=== PATIENT | female | born 1970 | race Caucasian/White ===

== ENCOUNTER 2023-03-06 21:02 | Emergency (ER) | payer BC, OTHER, SELFPAY ==
--- NOTE | ~2023-03-06 | XR_ITS ---
EXAM: XR knee RT 3V DATE: 03/06/2023 21:58 HISTORY: MEDIAL RIGHT KNEE PAIN AFTER TWISTING INJURY TODAY. . COMPARISON: None available. FINDINGS: Normal mineralization. No fracture or dislocation. No lytic or blastic lesion. Tricompartm ental osteoarthritic arthritis, severe in the medial compartment. Moderate joint effusion. No erosion or periosteal change. Soft tissues within normal limits. IMPRESSION: No acute osseous finding in the right knee. Reviewed, dictated and finalized at location K.
[2023-03-06 21:29] VITALS: BP 183/80; PULSE 98; RESP 20; TEMP 37; O2SAT 96
--- NOTE | 2023-03-06 21:59 | ED.LOWEXIN ---
HPI - Extremity Injury (Lower) General Chief Complaint: Extremity Injury, Lower Stated Complaint: R Ankle Injury Time Seen by Provider: 03/06/23 21:12 Source: patient Mode of arrival: ambulatory Limitations: no limitations History of Present Illness HPI Narrative: this is a 52-year-old female with a history of chronic pain presents after she twisted her right knee earlier this evening causing pain that she rates at 10/10 has tried [id number] medications with minimal relief there is some swelling in the anterior surface of her right knee with tenderness with palpation and movement. complaint: knee injury Onset (ago): hour(s) Injury: Right: knee ( tender with swelling) Type of Injury: inversion Place: home Severity: moderate Severity scale (1-10): 10 Relieving factors: nothing Exacerbating factors: weight bearing, movement and palpation Context: walking Related Data Home Medications Medication Instructions Recorded Confirmed cyclobenzaprine 10 mg tablet 10 mg PO TID PRN Muscle Spasm 03/06/23 03/06/23 ibuprofen 800 mg tablet 800 mg PO Q6H PRN Pain 03/06/23 03/06/23 tramadol 50 mg tablet 50 mg PO PRN PRN Pain 03/06/23 03/06/23 Allergies Allergy/AdvReac Type Severity Reaction Status Date / Time meloxicam [From Mobic] Allergy Unknown Verified 03/06/23 21:35 Review of Systems Review of Systems: All systems reviewed & are unremarkable except as noted in HPI and below PMFSH Past Medical History Medical History Chronic knee pain Exam Const: General: healthy appearing Nutritional Appearance: well nourished Orientation/consciousness: patient oriented x3 Limitations: no limitations Neck: Neck: normal visual inspection Chest: Chest palpation & inspection: normal inspection of the chest Resp: Effort & Inspection: normal respiratory effort Auscultation: clear to auscultation bilaterally Cardio: Rate: regular rate Rhythm: regular rhythm GI: GI Palp: Yes Soft to palpation Auscultation: normal bowel sounds Back/Spine/Pelvis: Back: no CVA tenderness Skin: General skin exam: normal color Rashes: no rashes Wounds: no wounds Neuro: General: patient oriented x3, moves all extremities and no meningeal signs Extrem: Other: anterior right knee pain with some mild swelling with some tenderness with palpation Psych: Mental Status: mental status grossly normal Affect: normal affect Course Course Emergency Course: patient received a dose of 4mg IM morphine, reassessment of pain mildly improved, x-ray performed shows no acute fractures. Vital Signs Vital signs: Vital Signs Temperature 37.0 C 03/06/23 21:29 Pulse Rate 98 03/06/23 21:29 Respiratory Rate 20 03/06/23 21:29 Blood Pressure 183/80 H 03/06/23 21:29 Pulse Oximetry 96 03/06/23 21:29 Oxygen Delivery Room Air 03/06/23 21:29 Temperature 37.0 C 03/06/23 21:29 Pulse Rate 98 03/06/23 21:29 Respiratory Rate 20 03/06/23 21:29 Blood Pressure 183/80 H 03/06/23 21:29 Pulse Oximetry 96 03/06/23 21:29 Oxygen Delivery Room Air 03/06/23 21:29 Critical Care Time Critical Care Time Critical Care Time: No Discharge Plan Discharge Clinical Impression: Knee sprain Qualifiers: Encounter type: initial encounter Involved ligament of knee: other ligament Laterality: right Qualified Code(s): S83.8X1A - Sprain of other specified parts of right knee, initial encounter Patient Disposition: Home, Self-Care Condition: Stable Instructions: Antibiotic Form, Knee Sprain (ED) Additional Instructions: advised follow-up with primary care physician take medicine as prescribed. Prescriptions: New oxycodone-acetaminophen [Percocet] 5-325 mg tablet 1 tablet PO Q6H PRN (Reason: pain) Qty: 14 0RF No Action cyclobenzaprine [Flexeril] 10 mg Tablet 10 mg PO TID PRN (Reason: Muscle Spasm) ibuprofen 800 mg Tablet 800 mg PO Q6H PRN (
[2023-03-06] MEDS: MORPHINE SULFATE (*CRX) 4 MG/ML INJ IM (22:04)
[2023-03-06 22:31] VITALS: BP 168/78; PULSE 88; RESP 18; TEMP 36.6; O2SAT 98
== END 2023-03-06 22:34 | disposition home or self-care (01) ==
PROVIDERS: Emergency Provider Emergency Medicine
DX: S83.8X1A Sprain of other specified parts of right knee, initial encounter (principal); X50.0XXA Overexertion from strenuous movement or load, initial encounter
CPT/HCPCS: 73562; 96372; 99283; J2270